=== PATIENT | female | born 1965 | race Caucasian/White ===

== ENCOUNTER → 2021-03-13 10:24 | Outpatient (BNVA) | payer OTHER, SELFPAY | PROVIDERS: Family Provider Nurse Practitioner Family; PCP Nurse Practitioner Family; Visit Provider Nurse Practitioner Family | DX: J11.1 Influenza due to unidentified influenza virus with other respiratory manifestations (principal) | CPT/HCPCS: 87400 ==

== ENCOUNTER → 2022-06-19 15:15 | Outpatient (BNVA) | payer OTHER, SELFPAY | PROVIDERS: Family Provider Nurse Practitioner Family; Visit Provider Nurse Practitioner Women's Health | DX: N93.9 Abnormal uterine and vaginal bleeding, unspecified (principal); N85.2 Hypertrophy of uterus | CPT/HCPCS: 76830 ==

== ENCOUNTER → 2022-06-21 16:00 | Outpatient (BNVA) | payer OTHER, SELFPAY | PROVIDERS: Family Provider Nurse Practitioner Family; Visit Provider Nurse Practitioner Women's Health | DX: N93.9 Abnormal uterine and vaginal bleeding, unspecified (principal); Z12.4 Encounter for screening for malignant neoplasm of cervix | CPT/HCPCS: 81000; 81025; 87624; 88305 ==

== ENCOUNTER 2022-06-24 12:22 | Emergency (ER) | payer OTHER, SELFPAY ==
[2022-06-24 12:24] VITALS: BP 199/127; PULSE 101; RESP 16; TEMP 36.8; O2SAT 99
--- NOTE | 2022-06-24 12:36 | ED_ITS ---
HPI - Dizziness General: Chief Complaint: Dizziness Stated Complaint: high bloodpressure Time Seen by Provider: 06/24/22 12:36 History of Present Illness: HPI Narrative: Ms. Williamson is a 56-year-old lady presented to the emergency department for generalized illness. She reports complex recent history of abnormal uterine bleeding with abnormal ultrasound. She has been having frequent abnormal uterine bleeding and recently underwent biopsy attempt. Starting yesterday she felt generally unwell with lightheaded feeling, racing heart, chest discomfort, heaviness in her arms, and generalized malaise. Additionally she has had worsening abdominal pain since her biopsy attempt. Intensity symptoms is moderate to severe. No other specific changes in health, exacerbating, or alleviating factors identified. Onset (ago): day(s) Timing: constant Severity: moderate Context: other History of similar symptoms: No Exacerbating factors: nothing Relieving factors: lying down Associated symptoms: Reports headache(s), malaise, palpitations and short of breath Review of Systems General: Reports: 10 or more systems reviewed and unremarkable except in HPI and below Const: Reports: malaise Card: Reports: palpitations Neuro: Reports: headache(s) PFSH ED PFSH: Surgical History (Updated 07/04/22 @ 02:34 by Burt Saucedo MD) Tubal ligation status Family History Denies family history of Colon cancer Pancreatic cancer Ovarian cancer Diabetes Breast cancer Cancer Hypertension Uterine cancer Thyroid disease Stroke Social History Smoking and tobacco status: never smoked Physical Exam Const: COMMON NORMALS: alert GENERAL APPEARANCE: cooperative and well developed HENMT: COMMON NORMALS: normocephalic and atraumatic HEAD & SCALP: normocephalic and atraumatic Eye: COMMON NORMALS: conjunctivae normal CONJUNCTIVA: Yes conjunctivae nor mal SCLERA: sclerae normal Neck/C-Spine: COMMON NORMALS: supple GENERAL: Yes trachea midline Resp: COMMON NORMALS: clear to auscultation bilaterally EFFORT & INSPECTION: Yes able to speak in complete sentences AUSCULTATION: clear to auscultation bilaterally Cardio: COMMON NORMALS: regular rhythm RATE: tachycardic RHYTHM: regular rhythm GI: COMMON NORMALS: Soft to palpation PALPATION: Yes Soft to palpation, Yes Tenderness to palpation present (GI), Yes Guarding due to palpation present (GI) and No Rigid due to palpation Extremity: GENERAL: Yes normal exam except as noted and No edema Neuro: COMMON NORMALS: moves all extremities SENSORIUM/ORIENTATION: Yes alert and No Orientation impaired Psych: COMMON NORMALS: mental status grossly normal and Normal thought process present THOUGHT PROCESS: Normal thought process present Course Vital Signs: Vital signs: Vital Signs Temperature 98.2 F 06/24/22 12:24 Pulse Rate 83 06/24/22 15:16 Respiratory Rate 14 06/24/22 15:16 Blood Pressure 142/95 06/24/22 15:16 Pulse Oximetry 99 06/24/22 15:16 Oxygen Delivery Me thod 06/24/22 15:16 MDM - Dizziness Medical Decision Making 56-year-old lady presenting with blood pressure changes and generalized illness as well as headache. Exam as above with no focal neurologic deficits appreciated. EKG demonstrates sinus rhythm with right bundle branch block, no STEMI. No significant hematologic abnormalities, metabolic panel with hypokalemia. Negative range 2-hour delta troponin. Hematuria present though squamous epithelial contamination also present.. Chest x-ray with no lobar consolidation or pneumothorax per CT head negative for acute intracranial pathology. CT demonstrates no clear etiology of patient symptoms, abnormal uterine appearance and cervical appearance is known. Patient improved with analgesia and potassium supplementation. Most likely etiology patient's symptoms is nonspecific illness and postoperative pain. Plan for outpatient blood pressure management and potassium supplem entation. The results of ED evaluation were discussed with the patient including prescriptions and/or symptomatic cares (if applicable) including appropriate and responsible use, followup plan, and return precautions. The patient verbalized understanding and felt safe for discharge. Medical Records I reviewed the patient's medical records. Lab Data I reviewed the patient's lab results. 06/24/22 12:48 06/24/22 12:48 Radiology Impressions Chest X-Ray 06/24/22 12:49 IMPRESSION: No acute findings. Abdomen/Pelvis CT 06/24/22 13:13 IMPRESSION: 1. No acute findings. 2. Abnormal appearance of the uterus consistent with adenomyosis as suggested on prior ultrasound. The cervix is also enlarged but hypoenhancing. Cervical neoplasm not excluded. 3. Incidental findings above. ADDENDUM: 06/24/22 [id number] THIS REPORT CONTAINS FINDINGS THAT MAY BE CRITICAL TO PATIENT CARE. The findings were verbally communicated via telephone conference with Burt Saucedo at 3:05 PM FUR TAILOR on 06/24/2022. The findings were acknowledged and understood. Head CT 06/24/22 13:13 IMPRESSION: No acute intracranial abnormality. Laboratory Results WBC 9.7 10^3/uL (4.0-10.0) 06/24/22 12:48 RBC 4.59 10^6/uL (4.1-5.3) 06/24/22 12:48 Hgb 12.7 g/dL (11.5-15.3) 06/24/22 12:48 Hct 40.3 % (37.0-47.0) 06/24/22 12:48 MCV 87.8 fl (81-99) 06/24/22 12:48 MCH 27.7 pg (28.0-34.0) L 06/24/22 12:48 MCHC 31.5 g/dL (30.0-36.0) 06/24/22 12:48 RDW 13.0 % (12.1-15.1) 06/24/22 12:48 Plt Count 425 10^3/cmm (130-400) H 06/24/22 12:48 MPV 11.3 fL (7.4-10.4) H 06/24/22 12:48 Neut % (Auto) 68.5 % 06/24/22 12:48 Lymph % (Auto) 23.1 % 06/24/22 12:48 [place] % (Auto) 6.4 % 06/24/22 12:48 Eos % (Auto) 0.8 % 06/24/22 12:48 Baso % (Auto) 0.8 % 06/24/22 12:48 Neut # (Auto) 6.61 10^3/uL (1.8-7.7) 06/24/22 12:48 Lymph # (Auto) 2.2 10^3/uL (0.8-4.8) 06/24/22 12:48 [place] # (Auto) 0.6 10^3/uL (0.2-0.9) 06/24/22 12:48 Eos # (Auto) 0.1 10^3/uL (0.0-0.8) 06/24/22 12:48 Baso # (Auto) 0.1 10^3/uL (0.0-0.1) 06/24/22 12:48 Nucleated RBC % (auto) 0 % 06/24/22 12:48 Nucleated RBCs # 0.0 /100WBC 06/24/22 12:48 Sodium 139 mmol/L (136-145) 06/24/22 12:48 Potassium 3.0 mmol/L (3.5-5.1) L 06/24/22 12:48 Chloride 100 mmol/L (98-107) 06/24/22 12:48 Carbon Dioxide 26 mmol/L (22-29) 06/24/22 12:48 Anion Gap 16.0 (5-19) 06/24/22 12:48 BUN 9 mg/dL (6-20) 06/24/22 12:48 Creatinine 0.5 mg/dL (0.5-0.9) 06/24/22 12:48 GFR Calculation 128.6 mL/min (90-130) 06/24/22 12:48 Glucose 90 mg/dL (65-115) 06/24/22 12:48 Calculated Osmolality 286 mOsm/kg (285-295) 06/24/22 12:48 Lactate 1.4 mmol/L (0.5-2.2) 06/24/22 12:48 Calcium 9.4 mg/dL (8.5-10.5) 06/24/22 12:48 Total Bilirubin 0.2 mg/dL (0.15-1.2) 06/24/22 12:48 AST 23 U/L (0-32) 06/24/22 12:48 ALT 17 U/L (0-33) 06/24/22 12:48 Alkaline Phosphatase 68 U/L (35-105) 06/24/22 12:48 Troponin T Baseline 6 ng/L (0-10) 06/24/22 12:48 Troponin T 120 Minute 6.00 ng/L (0-10) 06/24/22 14:20 Delta Troponin T 0 ABS# (0-10) 06/24/22 14:20 Total Protein 6.9 g/dL (6.6-8.7) 06/24/22 12:48 Albumin 4.7 g/dL (3.5-5.2) 06/24/22 12:48 Globulin 2.2 g/dL (1.3-4.6) 06/24/22 12:48 Lipase 16 U/L (13-60) 06/24/22 12:48 TSH 1.81 uIU/mL (0.27-4.20) 06/24/22 12:48 Urine Color Straw (Yellow) 06/24/22 13:20 Urine Appearance Clear (CLEAR) 06/24/22 13:20 Urine pH 6.5 (5-7) 06/24/22 13:20 Ur Specific Pony 1.010 (1.005-1.030) 06/24/22 13:20 Urine Protein Neg (Negative) 06/24/22 13:20 Urine Glucose (UA) Norm (Normal) 06/24/22 13:20 Urine Ketones Negative (Negative) 06/24/22 13:20 Urine Blood 3+ (Negative) H 06/24/22 13:20 Urine Nitrate Negative (Negative) 06/24/22 13:20 Urine Bilirubin Neg (Negative) 06/24/22 13:20 Urine Urobilinogen Norm mg/dL (Negative) 06/24/22 13:20 Ur Leukocyte Esterase Negative (Negative) 06/24/22 13:20 Urine RBC 15-25 /hpf (0-2) H 06/24/22 13:20 Urine WBC 0-4 /hpf (0-5) H 06/24/22 13:20 Ur Squamous Epith Cells 10-15 /hpf (0-5) H 06/24/22 13:20 Amorphous Sediment Not Reportable 06/24/22 13:20 Urine Bacteria 1+ /hpf (NONE) H 06/24/22 13:20 Discharge Plan Discharge Patient Disposition: Home Clinical Impression: Hypertension, Lightheadedness, Headache, Malaise and fatigue, Abdominal pain, Abnormal finding present on diagnostic imaging of uterus Condition: Stable Prescriptions: New potassium chloride 10 mEq capsule, extended release 10 meq PO DAILY Qty: 7 0RF amlodipine 5 mg tablet 5 mg PO DAILY Qty: 30 0RF oxycodone 5 mg tablet 5 mg PO Q4H PRN (Reason: pain) Qty: 10 0RF No Action esomeprazole magnesium [Nexium] 20 mg capsule,delayed release(DR/EC) 20 mg PO DAILY Claritin-D 12 Hour 5-120 mg tablet extended release 12 hr 1 tab PO Q12H Qty: 60 0RF Discharge Orders: Discharge ED (Routine); Ordered 06/24/22 Ordered By: Burt Saucedo Discharge Diet: Advance as tolerated and Clear Liquid Discharge Activity: Increase activity as tolerated Patient Instructions: Hypokalemia (ED), Acute Headache (ED), Abdominal Pain (ED), Lightheadedness (ED), Opioid Safety Activity Restrictions/Additional Instructions: Thank you for visiting the emergency department. You were seen and evaluated for lightheadedness with syncope and generalized unwell feeling. The exact cause of your symptoms is unclear. Based on ED evaluation I do not feel that y ou require inpatient management at this time. I will prescribe medication for blood pressure, potassium supplementation for 1 week, and pain medication. You may use [id number] medications such as acetaminophen and ibuprofen for pain however please do not exceed the daily recommended dosage as listed on the packaging and please keep in mind that many namebrand medications contain the same active ingredients. Please avoid these medications if previously instructed to do so by another physician due to other underlying medical condition. 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 Return to the emergency department for uncontrolled symptoms or anything else that you are concerned about and feel needs emergency department evaluation. Coding Level of Care Code ED Teacher'S Aide for Nickolas Willingham
--- NOTE | 2022-06-24 12:49 | XRR_ITS ---
PROCEDURE INFORMATION: Exam: XR Chest Exam date and time: 06/24/2022 12:58 PM Age: 56 years old Clinical indication: Pain; Chest pressure; Additional info: Cp TECHNIQUE: Imaging protocol: Radiologic exam of the chest. Views: 1 view. COMPARISON: No relevant prior studies available. FINDINGS: Lungs: Unremarkable. No consolidation. Pleural spaces: Unremarkable. No pleural effusion. No pneumothorax. Heart/Mediastinum: Unremarkable. No cardiomegaly. Bones/joints: Unremarkable. XR/XR chest 1V portable [id number] IMPRESSION: No acute findings.
--- NOTE | 2022-06-24 12:55 | ECG_ITS ---
[facility] Test Date: 2022-06-24 Pat Name: Parris Williamson Department: Room: Gender: Female [employer]: : 1965 Requested By: Burt Saucedo Order Number: [id number] Debbie MD: Doc Temple M.D. Measurements Intervals [place] Rate: 85 P: 53 MA: 163 QRS: 39 QRSD: 147 T: 34 QT: 380 QTc: 452 Interpretive Statements SINUS RHYTHM RIGHT BUNDLE BRANCH BLOCK [120+ ms QRS DURATION, UPRIGHT V1, 40+ ms S IN I/aVL/V4/V5/V6] No previous ECG available for comparison Electronically Signed On 06-24-2022 15:19:46 HOISTING ENGINE OPERATOR by Doc Temple M.D. [id number]
[2022-06-24 13:01] VITALS: BP 159/107; PULSE 88; RESP 18; O2SAT 98
[2022-06-24 13:05] VITALS: RESP 18; O2SAT 97
[2022-06-24] MEDS: morphine 4 mg/mL SDV 1 mL IVP (13:05)
[2022-06-24 13:06] LABS: Basophils # 0.1 10^3/uL (0.0-0.1); Basophils % 0.8 %; Eosinophils # 0.1 10^3/uL (0.0-0.8); Eosinophils % 0.8 %; Hematocrit 40.3 % (37.0-47.0); Hemoglobin 12.7 g/dL (11.5-15.3); Lymphocytes # 2.2 10^3/uL (0.8-4.8); Lymphocytes % 23.1 %; Mean Corpuscular HGB Conc 31.5 g/dL (30.0-36.0); Mean Corpuscular Hemoglobin 27.7 pg (28.0-34.0); Mean Corpuscular Volume 87.8 fl (81-99); Mean Platelet Volume 11.3 fL (7.4-10.4); Monocytes # 0.6 10^3/uL (0.2-0.9); Monocytes % 6.4 %; Neutrophils # 6.61 10^3/uL (1.8-7.7); Neutrophils % 68.5 %; Nucleated Red Blood Cells % 0 %; Platelet Count 425 10^3/cmm (130-400); Red Blood Count 4.59 10^6/uL (4.1-5.3); White Blood Count 9.7 10^3/uL (4.0-10.0)
--- NOTE | 2022-06-24 13:13 | CTR_ITS ---
PROCEDURE INFORMATION: Exam: CT Head Without Contrast Exam date and time: 06/24/2022 2:24 PM Age: 56 years old Clinical indication: Pain; Dizziness; Headache; Additional info: Headache, dizziness TECHNIQUE: Imaging protocol: Computed tomography of the head without contrast. Radiation optimization: All CT scans at this facility use at least one of these dose optimization techniques: automated exposure control; mA and/or kV adjustment per patient size (includes targeted exams where dose is matched to clinical indication); or iterative reconstruction. Other protocol: This patient has received [address] and 0 known cardiac nuclear medicine studies in the 12 months prior to the current study. COMPARISON: No relevant prior studies available. RADIATION DOSE METRICS: Total DLP (mGy-cm): 339.86 FINDINGS: Brain: Normal. No hemorrhage. Unremarkable white matter. No mass effect. Cerebral ventricles: No ventriculomegaly. Paranasal sinuses: Visualized sinuses are unremarkable. No fluid levels. Mastoid air cells: Visualized mastoid air cells are well aerated. Bones/joints: Unremarkable. No acute fracture. Soft tissues: Unremarkable. CT/CT head wo con* [id number] IMPRESSION: No acute intracranial abnormality.
--- NOTE | 2022-06-24 13:13 | CTR_ITS ---
PROCEDURE INFORMATION: Exam: CT Abdomen And Pelvis With Contrast Exam date and time: 06/24/2022 2:31 PM Age: 56 years old Clinical indication: Abdominal pain; Patient HX: Bx on cervix; Additional info: Worsening abd pain, lower > upper, post endometrial biopsy attempt TECHNIQUE: Imaging protocol: Computed tomography of the abdomen and pelvis with contrast. Radiation optimization: All CT scans at this facility use at least one of these dose optimization techniques: automated exposure control; mA and/or kV adjustment per patient size (includes targeted exams where dose is matched to clinical indication); or iterative reconstruction. Contrast material: OMNI 350; Contrast volume: 75 ml; Contrast route: INTRAVENOUS (IV); Other protocol: This patient has received [address] and 0 known cardiac nuclear medicine studies in the 12 months prior to the current study. COMPARISON: US transvaginal [id number] 06/19/2022 3:20 PM RADIATION DOSE METRICS: Total DLP (mGy-cm): 339.86 FINDINGS: Lungs: Lung bases are clear. Liver: The liver is normal. Gallbladder and bile ducts: The gallbladder is normal. There is no biliary dilation. Pancreas: The pancreas is unremarkable. Spleen: The spleen is unremarkable. Adrenal glands: The adrenal glands are unremarkable. Kidneys and ureters: The kidneys are unremarkable. No hydronephrosis or stones. No ureteral dilation. Stomach and bowel: The stomach is decompressed, preventing meaningful evaluation of wall thickness. The small bowel is nondilated. The colon is unremarkable. Appendix: The appendix is normal. Intraperitoneal space: There is no free air or significant intraperitoneal free fluid. Vasculature: The aorta is unremarkable. There is no aneurysm. The portal, splenic and superior mesenteric veins are patent. Lymph nodes: There is no lymphadenopathy in the retroperitoneum, mesentery, pelvis or inguinal regions. Urinary bladder: The urinary bladder is unremarkable. Reproductive: Enlarged mildly irregular hyperemic uterine fundus and hypoenhancement of the enlarged cervix. Probable adenomyosis. Prominent bilateral adnexal veins. No adnexal mass or cyst. Bones/joints: There is mild degenerative disease in the lumbar spine. The pelvis and hips are unremarkable. Soft tissues: The abdominal wall is intact. CT/CT abdomen pelvis w con* [id number] IMPRESSION: 1. No acute findings. 2. Abnormal appearance of the uterus consistent with adenomyosis as suggested on prior ultrasound. The cervix is also enlarged but hypoenhancing. Cervical neoplasm not excluded. 3. Incidental findings above.
[2022-06-24 13:21] LABS: Lactate (Lactic Acid level) 1.4 mmol/L (0.5-2.2)
[2022-06-24 13:24] LABS: Troponin(5th) Baseline 6 ng/L (0-10)
[2022-06-24 13:29] LABS: Alanine Aminotransferase 17 U/L (0-33); Albumin Level 4.7 g/dL (3.5-5.2); Alkaline Phosphatase 68 U/L (35-105); Aspartate Amino Transferase 23 U/L (0-32); Blood Urea Nitrogen 9 mg/dL (6-20); Calcium 9.4 mg/dL (8.5-10.5); Carbon Dioxide 26 mmol/L (22-29); Chloride 100 mmol/L (98-107); Globulin 2.2 g/dL (1.3-4.6); Glomerular Filtration Rate 128.6 mL/min (90-130); Glucose 90 mg/dL (65-115); Lipase 16 U/L (13-60); Osmolality Calculated 286 mOsm/kg (285-295); Sodium 139 mmol/L (136-145); Thyroid Stimulating Hormone 1.81 uIU/mL (0.27-4.20); Total Bilirubin 0.2 mg/dL (0.15-1.2); Total Protein 6.9 g/dL (6.6-8.7)
[2022-06-24 13:30] VITALS: BP 150/91; PULSE 83; RESP 18; O2SAT 95
[2022-06-24 14:00] VITALS: BP 144/96; PULSE 78; RESP 18; O2SAT 95
[2022-06-24 14:03] LABS: Add Urine Microscopic? YES; Bilirubin Urine Neg (Negative); Blood Urine 3+ (Negative); Glucose Urine UA Norm (Normal); Ketones Urine Negative (Negative); Leukocyte Esterase Urine Negative (Negative); Nitrate Urine Negative (Negative); Protein Urine Neg (Negative); Urine Appearance Clear (CLEAR); Urine Color Straw (Yellow); Urobilinogen Urine Norm (Negative); pH Urine 6.5 (5-7)
[2022-06-24 14:04] LABS: Add Urine Culture? No; Bacteria Urine 1+ /hpf; RBC Urine 15-25 /hpf (0-2); WBC Urine 0-4 /hpf (0-5)
[2022-06-24] MEDS: iohexol 350 mg/mL 500 mL Btl (per mL) IV (14:24)
--- NOTE | 2022-06-24 15:03 | PC.NURSE ---
Pt refused Flu swab and Covid swab.
[2022-06-24] MEDS: potassium chloride ER 20 mEq Tablet 40 MEQ PO (15:09)
[2022-06-24 15:16] VITALS: BP 142/95; PULSE 83; RESP 14; O2SAT 99
[2022-06-24 15:37] LABS: Troponin 5 2HR Delta 0 ABS# (0-10)
== END 2022-06-24 15:27 | disposition home or self-care (01) ==
PROVIDERS: Emergency Provider Emergency Medicine
DX: R42 Dizziness and giddiness (principal); I10 Essential (primary) hypertension; R51.9 Headache, unspecified; R53.81 Other malaise; R53.83 Other fatigue; R10.9 Unspecified abdominal pain; R93.89 Abnormal findings on diagnostic imaging of other specified body structures
CPT/HCPCS: 36415; 70450; 71045; 74177; 80053; 81001; 83605; 83690; 84443; 84484; 85025; 93005; 96374; 99285; J2270; Q9967

== ENCOUNTER 2022-07-11 11:37 | Day surgery (SDC) | payer OTHER, SELFPAY ==
[2022-07-10 09:47] VITALS: BMI 3318.2
[2022-07-11] VITALS (9 sets, daily range): BP systolic 127–151; BP diastolic 80–116; PULSE 88–100; RESP 10–20; TEMP 36.3–36.8; O2SAT 94–100
[2022-07-11 12:12] LABS: OR HCG Qualitative Urine Negative (Negative)
[2022-07-11] MEDS: sodium chloride 0.9% 1,000 ML 30 ML IV (12:25)
--- NOTE | 2022-07-11 12:32 | W.PM.OPSUD ---
Surgery/Procedure H&P Update DATE OF PROCEDURE: July 11, 2022 DATE H&P PERFORMED: 07/05/22 H&P UPDATE INFORMATION: I have reviewed H&P completed within last 30 days, I have examined patient prior to procedure and No changes to prior documentation PREOP DIAGNOSIS: AUB PLANNED PROCEDURE: Operation Date: 07/11/22 15:05 Proposed Procedures p Hysteroscopy, dilation and curettage with Myosure [id number],N93.9(Not Applicable) - Aleida Alamo MD s Dilation And Curettage (D&C)(Not Applicable) - Aleida Alamo MD Related Problem List Diagnoses (1) Abnormal uterine bleeding:
[2022-07-11] MEDS: ceFAZolin 2,000 MG in sodium chloride 0.9% (plus) 50 ML 100 MG IV (13:05)
--- NOTE | 2022-07-11 13:27 | ANES.PREANE2 ---
Pre-Anesthetic Assessment Height/Weight: Height 12.7 cm Weight 53.524 kg Temp Pulse Resp BP Pulse Ox O2 Del Method 98.3 F 100 18 151/116 100 07/11/22 12:24 07/11/22 12:24 07/11/22 12:24 07/11/22 12:24 07/11/22 12:24 07/11/22 12:24 Preop Diagnosis: AUB Operation Date: 07/11/22 15:05 Proposed Procedures p Hysteroscopy, dilation and curettage with Myosure [id number],N93.9(Not Applicable) - Aleida Alamo MD s Dilation And Curettage (D&C)(Not Applicable) - Aleida Alamo MD Familial anesthetic complications: none Was Beta Brissa taken within 24 hours: N/A Was Clonidine taken within 24 hours: N/A Last intake: Intake Last Liquid Date 07/10/22 Last Liquid Time 23:00 Last Solid Date 07/10/22 Last Solid Time 23:00 Social No alcohol and No tobacco Exam alert, oriented x 3, clear to auscultation bilaterally and regular rate & rhythm Airway Submandibular: within normal limits Cervical ROM: within normal limits Mallampati: Class II Dentition: full GI Gastroesophageal Reflux Disease Anesthetic Plan ASA status: 2 Anesthesia: General Medications/Allergies Home Medications Medication Instructions Recorded Confirmed Last Taken Type esomeprazole magnesium 20 mg 20 mg PO DAILY 03/13/21 07/10/22 07/10/22 History capsule,delayed release (Nexium) loratadine 5 mg-pseudoephedrine ER 1 tab PO DAILY 07/10/22 07/10/22 07/10/22 History 120 mg tablet,extended release,12hr (Claritin-D 12 Hour) Allergies Allergy/AdvReac Type Severity Reaction Status Date / Time Sulfa (Sulfonamide Allergy ALGY-Hives Verified 07/11/22 12:03 Antibiotics) Current Medications Generic Name Dose Route Start Last Admin Trade Name Freq PRN Reason Stop Dose Admin Sodium Chloride 1,000 mls @ 30 mls/hr 07/11/22 12:00 07/11/22 12:25 Sodium Chloride 0.9% IV 07/12/22 11:59 30 mls/hr .Q24H FRANSISCO Administration PFSH Anesthesia Medical History (Updated 07/11/22 @ 12:32 by Aleida Alamo MD) Hypertension Surgical History Tubal ligation status Family History Denies family history of Colon cancer Pancreatic cancer Ovarian cancer Diabetes Breast cancer Cancer Hypertension Uterine cancer Thyroid disease Stroke Social History Smoking and tobacco status: never smoked Data Anesthesia Cardiac Studies: No Data to Display
--- NOTE | 2022-07-11 13:37 | P.OP_ITS ---
Operative Report Date of procedure: July 11, 2022 Pre-op diagnosis: Preop Diagnosis AUB Post-op diagnosis: same Post-op diagnosis: uterine fibroids and polyps Procedure done: hysteroscopy, dilation and curettage with myosure Specimens removed/disposition: endometrial curettings to pathology Surgeon: Aleida Alamo Anesthesia: General Estimated blood loss (mL): 5 IV fluids (mL): 1,000 Complications: none Findings: hysteroscopy deficit:150 Condition: stable Disposition: PACU Procedure: The patient was taken to the operating room where monitored anesthesia was administered and to be adequate. She was prepped and draped in the normal sterile fashion in the dorsal lithotomy position in [facility]. A weighted speculum was placed into the vagina and the anterior lip of the cervix grasped with a single-tooth tenaculum. The uterus was sounded to 8 cm. The cervix was dilated to 16 [place]. The hysteroscope was advanced into the endometrial cavity. There was uterine fibroids and several endometrial polyps visualized. The MyoSure device was activated and the tissue was removed. Pictures were taken pre and post procedure. All instruments were removed. The patient tolerated the procedure well. Sponge lap and needle counts were correct x3. She was taken to the recovery room in stable condition.
--- NOTE | 2022-07-11 13:43 | PM.DCS ---
Discharge Providers Date of Admission: 07/11/22 Date of Discharge: July 11, 2022 Attending Provider at Admission: Dr. Alamo Attending Provider at Discharge: Aleida Alamo MD Diagnoses at Discharge Discharge Diagnosis (1) Abnormal uterine bleeding: Status: Acute Reason for Visit Reason for Visit: Abnormal uterine and vaginal bleeding, unspecified Hospital Course Hospital Course The patient was admitted for surgery. She did well postoperatively and was ready for discharge. Discharge Data Studies Completed and Pending Laboratory Results Urine HCG, Qual Negative (Negative) 07/11/22 12:11 Vitals Last Vital Signs Temp 98.3 F 07/11/22 12:24 Pulse 100 07/11/22 12:24 Resp 18 07/11/22 12:24 BP 151/116 07/11/22 12:24 Pulse Ox 100 07/11/22 12:24 O2 Del Method 07/11/22 12:24 Discharge Plan Discharge Patient Disposition: Home Condition: Stable Prescriptions: Continued esomeprazole magnesium [Nexium] 20 mg capsule,delayed release(DR/EC) 20 mg PO DAILY Claritin-D 12 Hour 5-120 mg tablet extended release 12 hr 1 tab PO DAILY Discharge Orders: Discharge Order (Routine); Ordered 07/11/22 Ordered By: Aleida Alamo Discharge Attestations Time Spent in Discharge Care*: less than 30 min Quality Metrics Clinical Quality Measures [ No reported AMI, CVA or VTE this stay] Coding Level of Care Code Acute Code for Chg Fwd Diagnoses Abnormal uterine bleeding N93.9
--- NOTE | 2022-07-11 14:51 | ANE.PACU2 ---
Inpatient post-anesthesia follow up: Airway intact: Yes Vital signs: Temperature 97.8 F Pulse Rate 88 Respiratory Rate 16 Blood Pressure 139/99 Pulse Oximetry 97 Oxygen Delivery Me thod Room Air Oxygen Flow Rate 8 Fraction of Inspir ed Oxygen Hydration adequate: Yes Nausea and vomiting: No Pain level: 2 Mental status: Baseline
== END 2022-07-11 15:10 | disposition home or self-care (01) ==
PROVIDERS: Anesthesiology; Visit Provider Obstetrics & Gynecology
PROC: 0UDB8ZZ Extraction of Endometrium, Via Natural or Artificial Opening Endoscopic (ICD-10-PCS; CPT 58558; principal; 2022-07-11 14:55)
PROC: (CPT 58120; 2022-07-11 14:55)
DX: N93.9 Abnormal uterine and vaginal bleeding, unspecified (principal); K21.9 Gastro-esophageal reflux disease without esophagitis; I10 Essential (primary) hypertension
CPT/HCPCS: 58558; 84703; 88305; J0690; J2250; J3010; J7030

== ENCOUNTER 2022-07-20 16:42 | Emergency (ER) | payer OTHER, SELFPAY ==
[2022-07-20 16:50] VITALS: BP 167/124; PULSE 107; RESP 16; TEMP 36.6; O2SAT 99
--- NOTE | 2022-07-20 17:03 | CTR_ITS ---
PROCEDURE INFORMATION: Exam: CT Abdomen And Pelvis With Contrast Exam date and time: 07/20/2022 6:06 PM Age: 56 years old Clinical indication: Abdominal pain; Localized; Lower; Prior surgery; Surgery type: Tubal 07/11 had scope to look at uterus; Additional info: Abd pain TECHNIQUE: Imaging protocol: Computed tomography of the abdomen and pelvis with contrast. Radiation optimization: All CT scans at this facility use at least one of these dose optimization techniques: automated exposure control; mA and/or kV adjustment per patient size (includes targeted exams where dose is matched to clinical indication); or iterative reconstruction. Contrast material: OMNI 350; Contrast volume: 75 ml; Contrast route: INTRAVENOUS (IV); REPORTING DATA: Count of CT and Cardiac NM exams in prior 12 months: This patient has received 2 known CTs and 0 known cardiac nuclear medicine studies in the 12 months prior to the current study. COMPARISON: CT abdomen pelvis w con* [id number] 06/24/2022 2:31 PM RADIATION DOSE METRICS: Total DLP (mGy-cm): 369.65 FINDINGS: Liver: Hepatic steatosis. Gallbladder and bile ducts: Normal. No calcified stones. No ductal dilation. Pancreas: Normal. No ductal dilation. Spleen: Normal. No splenomegaly. Adrenal glands: Normal. No mass. Kidneys and ureters: Normal. No hydronephrosis. Stomach and bowel: Prominent fluid in the small bowel without dilation suggestive of an enteritis. Constipation. Appendix: No evidence of appendicitis. Intraperitoneal space: Unremarkable. No free air. No significant fluid collection. Vasculature: Unremarkable. No abdominal aortic aneurysm. Lymph nodes: Unremarkable. No enlarged lymph nodes. Urinary bladder: Unremarkable as visualized. Reproductive: Fibroid uterus with possible adenomyosis, please refer to prior ultrasound report. Bones/joints: Unremarkable. No acute fracture. Soft tissues: Unremarkable. CT/CT abdomen pelvis w con* [id number] IMPRESSION: 1. Prominent fluid in the small bowel without dilation suggestive of an enteritis. 2. Fibroid uterus with possible adenomyosis, please refer to prior ultrasound report for additional discussion. 3. Hepatic steatosis. 4. Constipation.
--- NOTE | 2022-07-20 17:47 | W.ED.ABDPA2 ---
Documented by User: Magen Sparks DO 07/21/22 06:19 HPI - Abdominal Pain General: Chief Complaint: Abdominal Pain Stated Complaint: swelling Time Seen by Provider: 07/20/22 16:58 Source: patient Mode of arrival: ambulatory History of Present Illness: 56-year-old female presents emergency room with complaint of pelvic pain. On July 11 she had a uterine biopsy done by Dr. Alamo initially she had some discomfort then it seemed to get better she has had intermittent vaginal bleeding which she states is typical for her. She denies any difficulty with bowel or bladder today she began to have a large amount of swelling and bloating and worsening pain to the point she presented to the emergency room she denies any fever sweats chills denies any dysuria urgency or frequency. MD elicited complaint: abdominal pain Pertinent past history: other (Recent surgical procedure) Onset (ago): day(s) Pain Consistency: constant Location: Pelvis Severity: moderate Quality: cramping Radiation: none Exacerbating factors: nothing Relieving factors: nothing Associated Symptoms: Reports GI cramping; Denies anorexia, belching, bloating, change in bowel habits, change in stool character, chills, coffee ground emesis, constipation, diarrhea, dyspepsia, dysuria, excessive flatus, fever(s), heartburn, hematochezia, hematuria, hematemesis, fecal incontinence, loose stools, melena, nausea, poor appetite, syncope and vomiting Review of Systems Const: Denies: fever(s) or chills Card: Denies: syncope GI: Reports: GI cramping; Denies: nausea, vomiting, hematemesis, coffee ground emesis, heartburn, diarrhea, constipation, bloating, belching, excessive flatus, fecal incontinence, change in bowel habits, change in stool character, hematochezia or melena : Denies: dysuria or hematuria PFSH ED PFSH: Medical History Acute sinusitis Hypertension Surgical History Tubal ligation status Family History Denies family history of Colon cancer Pancreatic cancer Ovarian cancer Diabetes Breast cancer Cancer Hypertension Uterine cancer Thyroid disease Stroke Physical Exam Const: GENERAL APPEARANCE: cooperative and comfortable ORIENTATION/CONSCIOUSNESS: Yes awake, Yes oriented to person, Yes oriented to place and Yes oriented to time HENMT: COMMON NORMALS: normocephalic, atraumatic and hearing grossly normal bilaterally HEAD & SCALP: normocephalic and atraumatic Resp: COMMON NORMALS: normal respiratory effort, No retractions, No use of accessory muscles and clear to auscultation bilaterally AUSCULTATION: clear to auscultation bilaterally Cardio: COMMON NORMALS: regular rate, regular rhythm and No murmurs present (Cardio) RATE: regular rate RHYTHM: regular rhythm GI: COMMON NORMALS: No hepatosplenomegaly present AUSCULTATION: Yes normoactive bowel sounds PALPATION: Yes Tenderness to palpation present (GI) (Suprapubic at the midline into the right of the midline), No Guarding due to palpation present (GI) and Yes No hepatosplenomegaly present Extremity: COMMON NORMALS: normal to inspection, capillary refill normal, no clubbing, cyanosis or edema, no calf tenderness and no pedal edema Neuro: SENSORIUM/ORIENTATION: Yes oriented to person, Yes oriented to place and Yes oriented to time Skin: COMMON NORMALS: no rashes or lesions noted GENERAL SKIN EXAM: no rashes or lesions noted Course Vital Signs: Vital signs: Vital Signs Temperature 97.9 F 07/20/22 16:50 Pulse Rate 107 H 07/20/22 16:50 Respiratory Rate 16 07/20/22 16:50 Blood Pressure 167/124 07/20/22 16:50 Pulse Oximetry 99 07/20/22 16:50 Oxygen Delivery Me thod 07/20/22 16:50 MDM - Abdominal Pain Medical Decision Making Care signed out to Dr. Adams at change of shift. See final notes for diagnosis and disposition. Patient presents here with abdominal pain likely postop pain her CT scan and blood work here are all normal we will prescribe her pain meds she is stable for discharge she is to follow-up with PCP and return if worsening. Lab Data 07/20/22 17:52 07/20/22 17:52 Labs/Radiology: Radiology Impressions Abdomen/Pelvis CT 07/20/22 17:03 IMPRESSION: 1. Prominent fluid in the small bowel without dilation suggestive of an enteritis. 2. Fibroid uterus with possible adenomyosis, please refer to prior ultrasound report for additional discussion. 3. Hepatic steatosis. 4. Constipation. Laboratory Results WBC 12.0 10^3/uL (4.0-10.0) H 07/20/22 17:52 RBC 4.35 10^6/uL (4.1-5.3) 07/20/22 17:52 Hgb 12.0 g/dL (11.5-15.3) 07/20/22 17:52 Hct 37.3 % (37.0-47.0) 07/20/22 17:52 MCV 85.7 fl (81-99) 07/20/22 17:52 MCH 27.6 pg (28.0-34.0) L 07/20/22 17:52 MCHC 32.2 g/dL (30.0-36.0) 07/20/22 17:52 RDW 12.8 % (12.1-15.1) 07/20/22 17:52 Plt Count 389 10^3/cmm (130-400) 07/20/22 17:52 MPV 11.2 fL (7.4-10.4) H 07/20/22 17:52 Neut % (Auto) 67.1 % 07/20/22 17:52 Lymph % (Auto) 22.7 % 07/20/22 17:52 [place] % (Auto) 7.8 % 07/20/22 17:52 Eos % (Auto) 1.5 % 07/20/22 17:52 Baso % (Auto) 0.6 % 07/20/22 17:52 Neut # (Auto) 8.05 10^3/uL (1.8-7.7) H 07/20/22 17:52 Lymph # (Auto) 2.7 10^3/uL (0.8-4.8) 07/20/22 17:52 [place] # (Auto) 0.9 10^3/uL (0.2-0.9) 07/20/22 17:52 Eos # (Auto) 0.2 10^3/uL (0.0-0.8) 07/20/22 17:52 Baso # (Auto) 0.1 10^3/uL (0.0-0.1) 07/20/22 17:52 Nucleated RBC % (auto) 0 % 07/20/22 17:52 Nucleated RBCs # 0.0 /100WBC 07/20/22 17:52 PT 12.60 SECONDS (12.1-14.9) 07/20/22 17:52 INR 0.91 (0.8-1.2) 07/20/22 17:52 APTT 27.8 SECONDS (23.9-36.7) 07/20/22 17:52 Sodium 139 mmol/L (136-145) 07/20/22 17:52 Potassium 3.2 mmol/L (3.5-5.1) L 07/20/22 17:52 Chloride 101 mmol/L (98-107) 07/20/22 17:52 Carbon Dioxide 27 mmol/L (22-29) 07/20/22 17:52 Anion Gap 14.2 (5-19) 07/20/22 17:52 BUN 14 mg/dL (6-20) 07/20/22 17:52 Creatinine 0.6 mg/dL (0.5-0.9) 07/20/22 17:52 GFR Calculation 104.2 mL/min (90-130) 07/20/22 17:52 Glucose 93 mg/dL (65-115) 07/20/22 17:52 Calculated Osmolality 288 mOsm/kg (285-295) 07/20/22 17:52 Calcium 9.9 mg/dL (8.5-10.5) 07/20/22 17:52 Total Bilirubin 0.2 mg/dL (0.15-1.2) 07/20/22 17:52 AST 28 U/L (0-32) 07/20/22 17:52 ALT 40 U/L (0-33) H 07/20/22 17:52 Alkaline Phosphatase 89 U/L (35-105) 07/20/22 17:52 Total Protein 7.3 g/dL (6.6-8.7) 07/20/22 17:52 Albumin 4.9 g/dL (3.5-5.2) 07/20/22 17:52 Globulin 2.4 g/dL (1.3-4.6) 07/20/22 17:52 Lipase 15 U/L (13-60) 07/20/22 17:52 Urine Color Colorless (Yellow) 07/20/22 18:40 Urine Appearance Clear (CLEAR) 07/20/22 18:40 Urine pH 7 (5-7) 07/20/22 18:40 Ur Specific [place] 1.005 (1.005-1.030) 07/20/22 18:40 Urine Protein Neg (Negative) 07/20/22 18:40 Urine Glucose (UA) Norm (Normal) 07/20/22 18:40 Urine Ketones Negative (Negative) 07/20/22 18:40 Urine Blood 2+ (Negative) H 07/20/22 18:40 Urine Nitrate Negative (Negative) 07/20/22 18:40 Urine Bilirubin Neg (Negative) 07/20/22 18:40 Urine Urobilinogen Neg mg/dL (Negative) 07/20/22 18:40 Ur Leukocyte Esterase Negative (Negative) 07/20/22 18:40 Urine RBC Rare /hpf (0-2) 07/20/22 18:40 Urine WBC Rare /hpf (0-5) 07/20/22 18:40 Ur Squamous Epith Cells Rare /hpf (0-5) 07/20/22 18:40 Amorphous Sediment Not Reportable 07/20/22 18:40 Urine Bacteria None /hpf (NONE) 07/20/22 18:40 Discharge Plan Discharge Patient Disposition: Home Clinical Impression: Abdominal pain Condition: Stable Prescriptions: New hydrocodone-acetaminophen 5-325 mg tablet 1 tab PO Q6H PRN (Reason: pain) Qty: 14 0RF ondansetron 4 mg tablet,disintegrating 4 mg PO Q6H PRN (Reason: nausea and vomiting) Qty: 14 0RF No Action esomeprazole magnesium [Nexium] 20 mg capsule,delayed release(DR/EC) 20 mg PO DAILY ciprofloxacin HCl [Cipro] 500 mg tablet 500 mg PO BID Claritin-D 12 Hour 5-120 mg tablet extended release 12 hr 1 tab PO DAILY Discharge Orders: Discharge ED (Routine); Ordered 07/20/22 Ordered By: Theresa Adams Referrals: Aleida Alamo MD [Physician] - 1-3 days Discharge Diet: Advance as tolerated Discharge Activity: Resume usual activity Patient Instructions: Abdominal Pain (ED), Opioid Safety Coding Level of Care Code ED 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 Operator 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 for Chg Fwd Documented by User: Theresa Adams MD 07/20/22 19:36 HPI - Abdominal Pain General: Chief Complaint: Abdominal Pain Stated Complaint: swelling Time Seen by Provider: 07/20/22 16:58 PFSH ED PFSH: Medical History Acute sinusitis Hypertension Surgical History Tubal ligation status Family History Denies family history of Colon cancer Pancreatic cancer Ovarian cancer Diabetes Breast cancer Cancer Hypertension Uterine cancer Thyroid disease Stroke Course Vital Signs: Vital signs: Vital Signs Temperature 97.9 F 07/20/22 16:50 Pulse Rate 107 H 07/20/22 16:50 Respiratory Rate 16 07/20/22 16:50 Blood Pressure 167/124 07/20/22 16:50 Pulse Oximetry 99 07/20/22 16:50 Oxygen Delivery Me thod 07/20/22 16:50 MDM - Abdominal Pain Medical Decision Making Patient presents here with abdominal pain likely postop pain her CT scan and blood work here are all normal we will prescribe her pain meds she is stable for discharge she is to follow-up with PCP and return if worsening. Lab Data 07/20/22 17:52 07/20/22 17:52 Labs/Radiology: Radiology Impressions Abdomen/Pelvis CT 07/20/22 17:03 IMPRESSION: 1. Prominent fluid in the small bowel without dilation suggestive of an enteritis. 2. Fibroid uterus with possible adenomyosis, please refer to prior ultrasound report for additional discussion. 3. Hepatic steatosis. 4. Constipation. Laboratory Results WBC 12.0 10^3/uL (4.0-10.0) H 07/20/22 17:52 RBC 4.35 10^6/uL (4.1-5.3) 07/20/22 17:52 Hgb 12.0 g/dL (11.5-15.3) 07/20/22 17:52 Hct 37.3 % (37.0-47.0) 07/20/22 17:52 MCV 85.7 fl (81-99) 07/20/22 17:52 MCH 27.6 pg (28.0-34.0) L 07/20/22 17:52 MCHC 32.2 g/dL (30.0-36.0) 07/20/22 17:52 RDW 12.8 % (12.1-15.1) 07/20/22 17:52 Plt Count 389 10^3/cmm (130-400) 07/20/22 17:52 MPV 11.2 fL (7.4-10.4) H 07/20/22 17:52 Neut % (Auto) 67.1 % 07/20/22 17:52 Lymph % (Auto) 22.7 % 07/20/22 17:52 [place] % (Auto) 7.8 % 07/20/22 17:52 Eos % (Auto) 1.5 % 07/20/22 17:52 Baso % (Auto) 0.6 % 07/20/22 17:52 Neut # (Auto) 8.05 10^3/uL (1.8-7.7) H 07/20/22 17:52 Lymph # (Auto) 2.7 10^3/uL (0.8-4.8) 07/20/22 17:52 [place] # (Auto) 0.9 10^3/uL (0.2-0.9) 07/20/22 17:52 Eos # (Auto) 0.2 10^3/uL (0.0-0.8) 07/20/22 17:52 Baso # (Auto) 0.1 10^3/uL (0.0-0.1) 07/20/22 17:52 Nucleated RBC % (auto) 0 % 07/20/22 17:52 Nucleated RBCs # 0.0 /100WBC 07/20/22 17:52 PT 12.60 SECONDS (12.1-14.9) 07/20/22 17:52 INR 0.91 (0.8-1.2) 07/20/22 17:52 APTT 27.8 SECONDS (23.9-36.7) 07/20/22 17:52 Sodium 139 mmol/L (136-145) 07/20/22 17:52 Potassium 3.2 mmol/L (3.5-5.1) L 07/20/22 17:52 Chloride 101 mmol/L (98-107) 07/20/22 17:52 Carbon Dioxide 27 mmol/L (22-29) 07/20/22 17:52 Anion Gap 14.2 (5-19) 07/20/22 17:52 BUN 14 mg/dL (6-20) 07/20/22 17:52 Creatinine 0.6 mg/dL (0.5-0.9) 07/20/22 17:52 GFR Calculation 104.2 mL/min (90-130) 07/20/22 17:52 Glucose 93 mg/dL (65-115) 07/20/22 17:52 Calculated Osmolality 288 mOsm/kg (285-295) 07/20/22 17:52 Calcium 9.9 mg/dL (8.5-10.5) 07/20/22 17:52 Total Bilirubin 0.2 mg/dL (0.15-1.2) 07/20/22 17:52 AST 28 U/L (0-32) 07/20/22 17:52 ALT 40 U/L (0-33) H 07/20/22 17:52 Alkaline Phosphatase 89 U/L (35-105) 07/20/22 17:52 Total Protein 7.3 g/dL (6.6-8.7) 07/20/22 17:52 Albumin 4.9 g/dL (3.5-5.2) 07/20/22 17:52 Globulin 2.4 g/dL (1.3-4.6) 07/20/22 17:52 Lipase 15 U/L (13-60) 07/20/22 17:52 Urine Color Colorless (Yellow) 07/20/22 18:40 Urine Appearance Clear (CLEAR) 07/20/22 18:40 Urine pH 7 (5-7) 07/20/22 18:40 Ur Specific [place] 1.005 (1.005-1.030) 07/20/22 18:40 Urine Protein Neg (Negative) 07/20/22 18:40 Urine Glucose (UA) Norm (Normal) 07/20/22 18:40 Urine Ketones Negative (Negative) 07/20/22 18:40 Urine Blood 2+ (Negative) H 07/20/22 18:40 Urine Nitrate Negative (Negative) 07/20/22 18:40 Urine Bilirubin Neg (Negative) 07/20/22 18:40 Urine Urobilinogen Neg mg/dL (Negative) 07/20/22 18:40 Ur Leukocyte Esterase Negative (Negative) 07/20/22 18:40 Urine RBC Rare /hpf (0-2) 07/20/22 18:40 Urine WBC Rare /hpf (0-5) 07/20/22 18:40 Ur Squamous Epith Cells Rare /hpf (0-5) 07/20/22 18:40 Amorphous Sediment Not Reportable 07/20/22 18:40 Urine Bacteria None /hpf (NONE) 07/20/22 18:40 Discharge Plan Discharge Patient Disposition: Home Clinical Impression: Abdominal pain Condition: Stable Prescriptions: New hydrocodone-acetaminophen 5-325 mg tablet 1 tab PO Q6H PRN (Reason: pain) Qty: 14 0RF ondansetron 4 mg tablet,disintegrating 4 mg PO Q6H PRN (Reason: nausea and vomiting) Qty: 14 0RF No Action esomeprazole magnesium [Nexium] 20 mg capsule,delayed release(DR/EC) 20 mg PO DAILY ciprofloxacin HCl [Cipro] 500 mg tablet 500 mg PO BID Claritin-D 12 Hour 5-120 mg tablet extended release 12 hr 1 tab PO DAILY Discharge Orders: Discharge ED (Routine); Ordered 07/20/22 Ordered By: Theresa Adams Referrals: Aleida Alamo MD [Physician] - 1-3 days Discharge Diet: Advance as tolerated Discharge Activity: Resume usual activity Patient Instructions: Abdominal Pain (ED), Opioid Safety Coding Level of Care Code ED Dry Press Operator Helper for Chrisg Tarsha
[2022-07-20 17:59] LABS: Basophils # 0.1 10^3/uL (0.0-0.1); Basophils % 0.6 %; Eosinophils # 0.2 10^3/uL (0.0-0.8); Eosinophils % 1.5 %; Hematocrit 37.3 % (37.0-47.0); Lymphocytes # 2.7 10^3/uL (0.8-4.8); Lymphocytes % 22.7 %; Mean Corpuscular HGB Conc 32.2 g/dL (30.0-36.0); Mean Corpuscular Hemoglobin 27.6 pg (28.0-34.0); Mean Corpuscular Volume 85.7 fl (81-99); Mean Platelet Volume 11.2 fL (7.4-10.4); Monocytes # 0.9 10^3/uL (0.2-0.9); Monocytes % 7.8 %; Neutrophils # 8.05 10^3/uL (1.8-7.7); Neutrophils % 67.1 %; Nucleated Red Blood Cells % 0 %; Platelet Count 389 10^3/cmm (130-400); Red Blood Count 4.35 10^6/uL (4.1-5.3); Red Cell Distribution Width 12.8 % (12.1-15.1)
[2022-07-20] MEDS: iohexol 350 mg/mL 500 mL Btl (per mL) IV (18:10)
[2022-07-20 18:18] LABS: Alanine Aminotransferase 40 U/L (0-33); Albumin Level 4.9 g/dL (3.5-5.2); Alkaline Phosphatase 89 U/L (35-105); Anion Gap 14.2 (5-19); Aspartate Amino Transferase 28 U/L (0-32); Blood Urea Nitrogen 14 mg/dL (6-20); Calcium 9.9 mg/dL (8.5-10.5); Carbon Dioxide 27 mmol/L (22-29); Chloride 101 mmol/L (98-107); Globulin 2.4 g/dL (1.3-4.6); Glomerular Filtration Rate 104.2 mL/min (90-130); Glucose 93 mg/dL (65-115); Lipase 15 U/L (13-60); Osmolality Calculated 288 mOsm/kg (285-295); Potassium 3.2 mmol/L (3.5-5.1); Sodium 139 mmol/L (136-145); Total Bilirubin 0.2 mg/dL (0.15-1.2); Total Protein 7.3 g/dL (6.6-8.7)
[2022-07-20 18:19] LABS: INR 0.91 (0.8-1.2)
[2022-07-20 18:20] LABS: Partial Thromboplastin Time 27.8 SECONDS (23.9-36.7)
[2022-07-20 19:15] LABS: Add Urine Microscopic? YES; Bilirubin Urine Neg (Negative); Blood Urine 2+ (Negative); Glucose Urine UA Norm (Normal); Ketones Urine Negative (Negative); Leukocyte Esterase Urine Negative (Negative); Nitrate Urine Negative (Negative); Protein Urine Neg (Negative); Specific Gravity, Urine 1.005 (1.005-1.030); Urine Appearance Clear (CLEAR); Urine Color Colorless (Yellow); Urobilinogen Urine Neg (Negative); pH Urine 7 (5-7)
[2022-07-20 19:16] LABS: RBC Urine RARE /hpf (0-2); Squamous Epithelial Cell Urine RARE /hpf (0-5); WBC Urine RARE /hpf (0-5)
[2022-07-20 19:18] LABS: Add Urine Culture? No
--- NOTE | 2022-07-21 15:26 | PC.SOCIAL ---
Addendum entered by Marci Agee 08/01/22 08:53: appointment cancelled Original Note: PCP appt Contacted patient and offered PCP appt. Appt scheduled with Dr. Gunn on 07/31 at 315. Patient aware.
== END 2022-07-20 19:31 | disposition home or self-care (01) ==
PROVIDERS: Family Medicine; Emergency Provider Emergency Medicine
DX: D25.9 Leiomyoma of uterus, unspecified (principal); K59.00 Constipation, unspecified; K76.0 Fatty (change of) liver, not elsewhere classified; I10 Essential (primary) hypertension
CPT/HCPCS: 74177; 80053; 81000; 81001; 83690; 85025; 85610; 85730; 87086; 99285; Q9967

== ENCOUNTER → 2022-08-05 13:39 | Outpatient (BNVA) | payer OTHER, SELFPAY | PROVIDERS: Visit Provider Emergency Medicine | DX: J02.9 Acute pharyngitis, unspecified (principal); J00 Acute nasopharyngitis [common cold]; Z20.818 Contact with and (suspected) exposure to other bacterial communicable diseases; I10 Essential (primary) hypertension | CPT/HCPCS: 87880 ==

== ENCOUNTER 2022-09-12 10:03 | Observation (INO) | payer OTHER, SELFPAY ==
[2022-09-08 10:43] VITALS: BMI 22.2
[2022-09-08 11:33] LABS: Basophils % 0.4 %; Eosinophils # 0.1 10^3/uL (0.0-0.8); Eosinophils % 1.1 %; Hematocrit 39.3 % (37.0-47.0); Hemoglobin 12.3 g/dL (11.5-15.3); Lymphocytes # 1.5 10^3/uL (0.8-4.8); Lymphocytes % 17.2 %; Mean Corpuscular HGB Conc 31.3 g/dL (30.0-36.0); Mean Corpuscular Hemoglobin 26.6 pg (28.0-34.0); Mean Corpuscular Volume 85.1 fl (81-99); Mean Platelet Volume 11.7 fL (7.4-10.4); Monocytes # 0.6 10^3/uL (0.2-0.9); Monocytes % 7.6 %; Neutrophils # 6.19 10^3/uL (1.8-7.7); Neutrophils % 73.5 %; Nucleated Red Blood Cells % 0 %; Platelet Count 360 10^3/cmm (130-400); Red Blood Count 4.62 10^6/uL (4.1-5.3); Red Cell Distribution Width 13.7 % (12.1-15.1); White Blood Count 8.4 10^3/uL (4.0-10.0)
[2022-09-08 11:50] LABS: Anion Gap 15.4 (5-19); Blood Urea Nitrogen 7 mg/dL (6-20); Calcium 9.1 mg/dL (8.5-10.5); Carbon Dioxide 25 mmol/L (22-29); Chloride 102 mmol/L (98-107); Glomerular Filtration Rate 128.6 mL/min (90-130); Glucose 91 mg/dL (65-115); Osmolality Calculated 286 mOsm/kg (285-295); Potassium 3.4 mmol/L (3.5-5.1); Sodium 139 mmol/L (136-145)
--- NOTE | 2022-09-08 15:23 | ANES.PREANE2 ---
Pre-Anesthetic Assessment Height/Weight: Height 1.52 m Weight 51.71 kg Preop Diagnosis: AUB Operation Date: 09/12/22 08:40 Proposed Procedures p Laparoscopic assisted vaginal hysterectomy, bilateral salpingectomy 92922,N80.03, N81.4,N93.9(Not Applicable) - Aleida Alamo MD s Laparoscopic Salpingostomy(Not Applicable) - Aleida Alamo MD Familial anesthetic complications: none Was Beta Brissa taken within 24 hours: N/A Was Clonidine taken within 24 hours: N/A Social No alcohol and No tobacco Exam alert, oriented x 3, clear to auscultation bilaterally and regular rate & rhythm Airway Submandibular: within normal limits Cervical ROM: within normal limits Mallampati: Class II Dentition: full History/ROS No significant history except as noted GI Gastroesophageal Reflux Disease Anesthetic Plan ASA status: 2 Anesthesia: General Medications/Allergies Home Medications Medication Instructions Recorded Confirmed Last Taken Type esomeprazole magnesium 20 mg 20 mg PO DAILY 03/13/21 09/08/22 09/08/22 History capsule,delayed release (Nexium) loratadine 5 mg-pseudoephedrine ER 1 tab PO DAILY 07/10/22 09/08/22 09/08/22 History 120 mg tablet,extended release,12hr (Claritin-D 12 Hour) Allergies Allergy/AdvReac Type Severity Reaction Status Date / Time Sulfa (Sulfonamide Allergy ALGY-Hives Verified 09/08/22 10:42 Antibiotics) [facility] Anesthesia Medical History Acute sinusitis Hypertension Hypertension Surgical History Tubal ligation status Family History Denies family history of Colon cancer Pancreatic cancer Ovarian cancer Diabetes Breast cancer Cancer Hypertension Uterine cancer Thyroid disease Stroke Female Reproductive History Date of last menstrual period: 08/08/22 Data Anesthesia 09/08/22 10:53 09/08/22 10:53 Short CBC 09/08/22 Range/Units 10:53 WBC 8.4 (4.0-10.0) 10^3/uL Hgb 12.3 (11.5-15.3) g/dL Hct 39.3 (37.0-47.0) % MCV 85.1 (81-99) fl Plt Count 360 (130-400) 10^3/cmm Neut % (Auto) 73.5 % Neut # (Auto) 6.19 (1.8-7.7) 10^3/uL BMP 09/08/22 10:53 Sodium 139 Potassium 3.4 L Chloride 102 Carbon Dioxide 25 BUN 7 Creatinine 0.5 Glucose 91 Calcium 9.1 Cardiac Studies: No Data to Display
[2022-09-12] VITALS (20 sets, daily range): BP systolic 112–157; BP diastolic 66–112; PULSE 78–99; RESP 14–20; TEMP 36.1–36.8; O2SAT 91–100
[2022-09-12] MEDS: scopolamine 1.5 Patch 1 PATCH TRANSDERMA (06:26)
[2022-09-12] MEDS: acetaminophen 1,000 MG/100 ML PIGGYBACK 400 MG IV (06:27)
[2022-09-12] MEDS: phenazopyridine 100 mg Tablet 200 MG PO ×2 (06:28→22:04)
[2022-09-12] MEDS: sodium chloride 0.9% 1,000 ML 30 ML IV (06:28)
[2022-09-12] MEDS: CELEcoxib 200 mg Capsule 400 MG PO (06:29)
[2022-09-12] MEDS: gabapentin 300 mg Capsule PO (06:29)
--- NOTE | 2022-09-12 06:53 | W.PM.OPSUD ---
Surgery/Procedure H&P Update DATE OF PROCEDURE: September 12, 2022 DATE H&P PERFORMED: 09/08/22 H&P UPDATE INFORMATION: I have reviewed H&P completed within last 30 days, I have examined patient prior to procedure and No changes to prior documentation PREOP DIAGNOSIS: aub, uterine prolapse PLANNED PROCEDURE: Operation Date: 09/12/22 07:00 Proposed Procedures p Laparoscopic assisted vaginal hysterectomy, bilateral salpingectomy 29328,N80.03, N81.4,N93.9(Not Applicable) - Aleida Alamo MD s Laparoscopic Salpingostomy(Not Applicable) - Aleida Alamo MD Related Problem List Diagnoses (1) Adenomyosis: (2) Uterine prolapse: (3) Abnormal uterine bleeding:
[2022-09-12] MEDS: midazolam 1 mg/mL INJ 2 mL 2 MG IVP (06:56)
[2022-09-12] MEDS: ceFAZolin 2,000 MG in sodium chloride 0.9% (plus) 50 ML 100 MG IV ×3 (07:03→22:47)
[2022-09-12 07:28] LABS: OR HCG Qualitative Urine Negative (Negative)
[2022-09-12] MEDS: vasopressin 20 unit/mL INJ INJECTION (08:12)
--- NOTE | 2022-09-12 09:16 | P.OP_ITS ---
Operative Report Date of procedure: September 12, 2022 Pre-op diagnosis: Preop Diagnosis aub, uterine prolapse Post-op diagnosis: same Post-op findings: 8 week sized uterus. Normal appearing ovaries. appearance of previous tubal Procedure done: LAVH, bilateral salpingectomy Specimens removed/disposition: uterus and bilateral tubal segments to pathology Surgeon: Aleida Alamo Anesthesia: General Estimated blood loss (mL): 200 IV fluids (mL): 1,000 Urine output (mL): 300 Complications: none Condition: stable Disposition: PACU Procedure: The patient was taken to the operating room where general anesthesia was administered and found to be adequate. She was prepped and draped in the normal sterile fashion in the dorsal lithotomy position in [facility]. A Hernandez catheter was placed. A weighted speculum was placed into the vagina and the anterior lip of the cervix was grasped with a single tooth tenaculum. The Zumi uterine manipulator was placed. The weighted speculum was removed. The gloves were changed and attention was turned to the abdomen. A 5 mm supraumbilical incision was made. Using a 5 mm port with the camera, the port was placed into the abdomen. The abdomen was insufflated. Two low, lateral 5 mm ports were placed on the left and right under direct visualization from the camera. bilateral ureters were identified. The right tube was grasped and elevated. Using the laparoscopic cautery, the mesosalpinx was divided between the ovary and tube. The tube was removed. This was performed the same way on the left. The uteroovarian ligaments as well as the round ligaments were ligated. Attention was then turned to the vaginal portion of the procedure. The weighted speculum was placed into the vagina. The zumi manipulator was removed. The single tooth tenaculum was removed and replaced with the oliver's tenaculum. 10 mL of dilute Pitressin was injected at the vesicovaginal ju nction. A circumferential incision was made at the vesicovaginal junction and the vaginal mucosa reflected cephalad. The posterior peritoneum was entered sharply with the Metzenbaum scissors and the long weighted speculum replaced. Using the Cristela clamps the uterosacral ligaments were clamped cut and suture- ligated. The anterior peritoneum was entered sharply with the metzenbaum scissors. Then sequentially the uterine arteries and cardinal ligaments were clamped cut and suture-ligated. A single-tooth tenaculum was used to deliver the uterus. The remaining segement of the utero-ovarian ligaments were clamped cut and suture-ligated bilaterally and the specimen was removed. There was good hemostasis with only mild bleeding from the cuff. The peritoneum was closed with a pursestring using 2-0 Vicryl. The vaginal cuff was closed with 0 Vicryl in a running locked pattern incorporating the uterosacral ligaments into the lateral aspects of the vaginal cuff. The Hernandez catheter was removed and the cystoscope advanced into the bladder. The patient was given pyridium and bilateral spill was noted. There were no injuries or deficits noted in the bladder. The cystoscope was removed and the Hernandez was replaced. Vaginal packing was placed for good hemostasis. The gloves and gowns were changed and attention was turned to the abdomen. The ports were closed with 2-0 monocryl with skin glue. The patient tolerated the procedure well. Sponge lap and needle counts were correct x3. She was taken to the recovery room in stable condition.
--- NOTE | 2022-09-12 09:27 | PC.NURSE ---
Pt arrived to PACU, resting comfortably, peripad in place, no drainage noted. Hernandez catheter patent and draining.
[2022-09-12] MEDS: fentaNYL 50 mcg/mL INJ 2mL IVP ×2 (09:31→09:45)
[2022-09-12] MEDS: ondansetron 2 mg/ML SDV 2 mL 4 MG IVP ×2 (09:34→17:20)
[2022-09-12] MEDS: dextrose 5%-lactated ringers 1,000 ML 125 ML IV ×2 (10:51)
[2022-09-12] MEDS: metoclopramide 5 mg/mL SDV 2 mL 10 MG IVP (10:52)
[2022-09-12] MEDS: HYDROcodone-acetaminophen 5-325 mg Tablet PO (12:18)
--- NOTE | 2022-09-12 13:57 | ANE.PACU2 ---
Inpatient post-anesthesia follow up: Airway intact: Yes Vital signs: Temperature 97.5 F Pulse Rate 96 Respiratory Rate 16 Blood Pressure 150/97 Pulse Oximetry 94 Oxygen Delivery Me thod Room Air Oxygen Flow Rate 2 Fraction of Inspir ed Oxygen Hydration adequate: Yes Nausea and vomiting: No Pain level: 1 Mental status: Baseline
[2022-09-12] MEDS: ketorolac 30 mg/mL INJ IVP ×2 (14:15→19:29)
[2022-09-13] MEDS: ketorolac 30 mg/mL INJ IVP (01:01)
[2022-09-13] MEDS: HYDROcodone-acetaminophen 5-325 mg Tablet PO (02:37)
[2022-09-13 04:00] VITALS: BP 146/84; PULSE 86; RESP 16; TEMP 36.8; O2SAT 96
--- NOTE | 2022-09-13 05:18 | PC.NURSE ---
Vaginal packing was removed @0455 with scant amount of blood on packing. Patient tolerated well.
[2022-09-13 05:19] LABS: Hematocrit 36.9 % (37.0-47.0); Hemoglobin 11.5 g/dL (11.5-15.3); Mean Corpuscular HGB Conc 31.2 g/dL (30.0-36.0); Mean Corpuscular Hemoglobin 26.2 pg (28.0-34.0); Mean Corpuscular Volume 84.1 fl (81-99); Mean Platelet Volume 11.4 fL (7.4-10.4); Platelet Count 383 10^3/cmm (130-400); Red Blood Count 4.39 10^6/uL (4.1-5.3); Red Cell Distribution Width 13.6 % (12.1-15.1)
[2022-09-13] MEDS: ibuprofen 800 mg tablet PO (08:36)
[2022-09-13] MEDS: docusate sodium 100 mg Capsule PO (08:36)
[2022-09-13] MEDS: phenazopyridine 100 mg Tablet 200 MG PO (08:36)
[2022-09-13] MEDS: pantoprazole DR 40 mg Tablet PO (08:36)
--- NOTE | 2022-09-13 09:54 | PM.DCS ---
Discharge Providers Date of Admission: 09/12/22 10:03 Date of Discharge: September 13, 2022 Attending Provider at Admission: Aleida Alamo MD Attending Provider at Discharge: Aleida Alamo MD Diagnoses at Discharge Discharge Diagnosis (1) Adenomyosis: Status: Acute (2) Uterine prolapse: Status: Acute (3) Abnormal uterine bleeding: Status: Acute Reason for Visit Reason for Visit: N80.03, N81.4, N93.9 Physical Exam Narrative: The patient is doing well. No concerns today. Packing and ayon have been removed Const: COMMON NORMALS: no acute distress, average body habitus, patient oriented x3, no limitations, healthy appearing, alert and well nourished GENERAL APPEARANCE: cooperative, comfortable, well kempt and well developed ORIENTATION/CONSCIOUSNESS: Yes awake, Yes oriented to person, Yes oriented to place and Yes oriented to time Resp: COMMON NORMALS: normal respiratory effort EFFORT & INSPECTION: Yes able to speak in complete sentences GI: COMMON NORMALS: Soft to palpation and non-tender PALPATION: Yes Soft to palpation Extremity: COMMON NORMALS: no calf tenderness Neuro: COMMON NORMALS: patient oriented x3 SENSORIUM/ORIENTATION: Yes alert, Yes oriented to person, Yes oriented to place and Yes oriented to time Psych: APPEARANCE: Yes well kempt Urinary Catheter Management: Ayon: Cath Placed During This Visit: yes, but has since been removed by the nurse Reason for Continuing Indwelling Catheter: Decision to DC Catheter Urinary Catheter Date of Insertion: 09/12/22 Urinary Catheter Time of Insertion: 07:30 Date Urinary Catheter Removed: 09/13/22 Time Urinary Catheter Discontinued: 04:55 Discharge Data Studies Completed and Pending Pending at discharge Category Date Time Status Urine Culture Routine Lab 09/12/22 07:31 Results Pathology: Surgical [PTH] Routine Pth 09/12/22 09:13 Received Laboratory Results WBC 17.0 10^3/uL (4.0-10.0) H 09/13/22 04:55 RBC 4.39 10^6/uL (4.1-5.3) 09/13/22 04:55 Hgb 11.5 g/dL (11.5-15.3) 09/13/22 04:55 Hct 36.9 % (37.0-47.0) L 09/13/22 04:55 MCV 84.1 fl (81-99) 09/13/22 04:55 MCH 26.2 pg (28.0-34.0) L 09/13/22 04:55 MCHC 31.2 g/dL (30.0-36.0) 09/13/22 04:55 RDW 13.6 % (12.1-15.1) 09/13/22 04:55 Plt Count 383 10^3/cmm (130-400) 09/13/22 04:55 MPV 11.4 fL (7.4-10.4) H 09/13/22 04:55 Neut % (Auto) 73.5 % 09/08/22 10:53 Lymph % (Auto) 17.2 % 09/08/22 10:53 [place] % (Auto) 7.6 % 09/08/22 10:53 Eos % (Auto) 1.1 % 09/08/22 10:53 Baso % (Auto) 0.4 % 09/08/22 10:53 Neut # (Auto) 6.19 10^3/uL (1.8-7.7) 09/08/22 10:53 Lymph # (Auto) 1.5 10^3/uL (0.8-4.8) 09/08/22 10:53 [place] # (Auto) 0.6 10^3/uL (0.2-0.9) 09/08/22 10:53 Eos # (Auto) 0.1 10^3/uL (0.0-0.8) 09/08/22 10:53 Baso # (Auto) 0.0 10^3/uL (0.0-0.1) 09/08/22 10:53 Nucleated RBC % (auto) 0 % 09/08/22 10:53 Nucleated RBCs # 0.0 /100WBC 09/08/22 10:53 Sodium 139 mmol/L (136-145) 09/08/22 10:53 Potassium 3.4 mmol/L (3.5-5.1) L 09/08/22 10:53 Chloride 102 mmol/L (98-107) 09/08/22 10:53 Carbon Dioxide 25 mmol/L (22-29) 09/08/22 10:53 Anion Gap 15.4 (5-19) 09/08/22 10:53 BUN 7 mg/dL (6-20) 09/08/22 10:53 Creatinine 0.5 mg/dL (0.5-0.9) 09/08/22 10:53 GFR Calculation 128.6 mL/min (90-130) 09/08/22 10:53 Glucose 91 mg/dL (65-115) 09/08/22 10:53 Calculated Osmolality 286 mOsm/kg (285-295) 09/08/22 10:53 Calcium 9.1 mg/dL (8.5-10.5) 09/08/22 10:53 Urine HCG, Qual Negative (Negative) 09/12/22 06:48 Blood Type A Positive 09/12/22 06:17 Rho(D) Type Positive 09/12/22 06:17 Antibody Screen Negative 09/12/22 06:17 Vitals Last Vital Signs Temp 98.3 F 09/13/22 04:00 Pulse 86 09/13/22 04:00 Resp 16 09/13/22 04:00 BP 146/84 09/13/22 04:00 Pulse Ox 96 09/13/22 04:00 O2 Del Method Room Air 09/13/22 04:00 O2 Flow Rate 2 09/12/22 09:54 Discharge Plan Discharge Patient Disposition: Home Condition: Stable Prescriptions: New ibuprofen 800 mg Tablet 800 mg PO Q8H Qty: 30 0RF hydrocodone-acetaminophen 5-325 mg Tablet 1 tab PO Q4H PRN (Reason: Moderate To Severe Pain) Qty: 30 0RF docusate sodium 100 mg Capsule 100 mg PO BID Qty: 60 0RF Continued esomeprazole magnesium [Nexium] 20 mg capsule,delayed release(DR/EC) 20 mg PO DAILY Claritin-D 12 Hour 5-120 mg tablet extended release 12 hr 1 tab PO DAILY Discharge Orders: Discharge Order (Routine); Ordered 09/13/22 Ordered By: Aleida Alamo Patient Instructions: Salpingectomy (DC), Laparoscopic Hysterectomy (DC), OB Discharge Report, OB Anesthesia Instructions, OB Food/Drug Interaction Guide, Opioid Safety Discharge Attestations Time Spent in Discharge Care*: less than 30 min Quality Metrics Clinical Quality Measures [ No reported AMI, CVA or VTE this stay] Coding Level of Care Code Acute Code for Chg Fwd Diagnoses Adenomyosis N80.03 Uterine prolapse N81.4 Abnormal uterine bleeding N93.9
[2022-09-13 10:30] VITALS: BP 145/89; PULSE 87; RESP 16; TEMP 36.6; O2SAT 98
[2022-09-13 11:40] VITALS: BP 155/98; PULSE 99; RESP 16; TEMP 36.5; O2SAT 97
== END 2022-09-13 11:38 | disposition home or self-care (01) ==
LOC: OBGYN 10:03
PROVIDERS: Anesthesiology; Admitting Provider Obstetrics & Gynecology; Visit Provider Obstetrics & Gynecology
PROC: 0UT9FZZ Resection of Uterus, Via Natural or Artificial Opening With Percutaneous Endoscopic Assistance (ICD-10-PCS; CPT 58552; principal; 2022-09-12 07:00)
PROC: (CPT 58673; 2022-09-12 07:00)
DX: N81.4 Uterovaginal prolapse, unspecified (principal); N80.03 Adenomyosis of the uterus; D25.9 Leiomyoma of uterus, unspecified; N88.8 Other specified noninflammatory disorders of cervix uteri; N83.8 Other noninflammatory disorders of ovary, fallopian tube and broad ligament; K21.9 Gastro-esophageal reflux disease without esophagitis; I10 Essential (primary) hypertension; Z88.2 Allergy status to sulfonamides
CPT/HCPCS: 58552; 36415; 80048; 81025; 84703; 85025; 85027; 86850; 86900; 87086; 88305; 96374; 96376; G0378; J0131; J0690; J1100; J1170; J1885; J2250; J2405; J2704; J2710; J2765; J3010; J3490; J7030; J7121

== ENCOUNTER 2022-09-19 21:39 | Emergency (ER) | payer OTHER, SELFPAY ==
[2022-09-19 21:41] VITALS: BP 180/116; PULSE 104; RESP 17; TEMP 36.4; O2SAT 97
[2022-09-19 22:14] LABS: Basophils # 0.1 10^3/uL (0.0-0.1); Basophils % 0.5 %; Eosinophils # 0.2 10^3/uL (0.0-0.8); Eosinophils % 1.7 %; Hematocrit 38.5 % (37.0-47.0); Hemoglobin 12.1 g/dL (11.5-15.3); Lymphocytes # 2.6 10^3/uL (0.8-4.8); Lymphocytes % 19.5 %; Mean Corpuscular HGB Conc 31.4 g/dL (30.0-36.0); Mean Corpuscular Hemoglobin 26.5 pg (28.0-34.0); Mean Corpuscular Volume 84.2 fl (81-99); Monocytes % 7.4 %; Neutrophils # 9.26 10^3/uL (1.8-7.7); Neutrophils % 70.3 %; Nucleated Red Blood Cells % 0 %; Platelet Count 408 10^3/cmm (130-400); Red Blood Count 4.57 10^6/uL (4.1-5.3); Red Cell Distribution Width 13.9 % (12.1-15.1); White Blood Count 13.2 10^3/uL (4.0-10.0)
[2022-09-19 22:34] LABS: Alanine Aminotransferase 119 U/L (0-33); Albumin Level 4.5 g/dL (3.5-5.2); Alkaline Phosphatase 128 U/L (35-105); Anion Gap 14.7 (5-19); Aspartate Amino Transferase 94 U/L (0-32); Blood Urea Nitrogen 11 mg/dL (6-20); Calcium 9.5 mg/dL (8.5-10.5); Carbon Dioxide 28 mmol/L (22-29); Chloride 101 mmol/L (98-107); Globulin 2.6 g/dL (1.3-4.6); Glomerular Filtration Rate 166.3 mL/min (90-130); Glucose 98 mg/dL (65-115); Lipase 16 U/L (13-60); Osmolality Calculated 289 mOsm/kg (285-295); Potassium 3.7 mmol/L (3.5-5.1); Sodium 140 mmol/L (136-145); Total Bilirubin 0.2 mg/dL (0.15-1.2); Total Protein 7.1 g/dL (6.6-8.7)
--- NOTE | 2022-09-19 22:34 | CTR_ITS ---
PROCEDURE INFORMATION: Exam: CT Abdomen And Pelvis With Contrast Exam date and time: 09/19/2022 10:58 PM Age: 56 years old Clinical indication: Abdominal pain; Other: Pelvic; Prior surgery; Surgery date: 3-7 days post-operative; Surgery type: Hysterectomy; Additional info: Abd pain TECHNIQUE: Imaging protocol: Computed tomography of the abdomen and pelvis with contrast. Radiation optimization: All CT scans at this facility use at least one of these dose optimization techniques: automated exposure control; mA and/or kV adjustment per patient size (includes targeted exams where dose is matched to clinical indication); or iterative reconstruction. Contrast material: OMNI 350; Contrast volume: 70 ml; Contrast route: INTRAVENOUS (IV); REPORTING DATA: Count of CT and Cardiac NM exams in prior 12 months: This patient has received 3 known CTs and 0 known cardiac nuclear medicine studies in the 12 months prior to the current study. COMPARISON: CT abdomen pelvis w con* [id number] 07/20/2022 6:06 PM RADIATION DOSE METRICS: Total DLP (mGy-cm): 690.7 FINDINGS: Liver: There is no focal abnormality within the liver. Gallbladder and bile ducts: The gallbladder is normal. Pancreas: The pancreas is normal. Spleen: The spleen is normal. Adrenal glands: The adrenal glands are normal. Kidneys and ureters: The kidneys are normal. There is no evidence of hydronephrosis. There is no evidence of renal or ureteral calcifications. Stomach and bowel: There is no evidence of colitis/diverticulitis. Appendix: A normal appendix is identified. Intraperitoneal space: Unremarkable. No free air. No significant fluid collection. Vasculature: Unremarkable. No abdominal aortic aneurysm. Lymph nodes: Unremarkable. No enlarged lymph nodes. Urinary bladder: Unremarkable as visualized. Reproductive: There are postsurgical changes of recent hysterectomy. There is some mild fluid density within the pelvis which is not unusual for recent postoperative status. No large pelvic hematoma or evidence of surgical complication is identified. Bones/joints: There is mild scoliosis concave to the right. The lumbar spine demonstrates moderate degenerative changes at multiple levels. Soft tissues: See Reproductive finding. CT/CT abdomen pelvis w con* [id number] IMPRESSION: Expected postoperative changes of recent hysterectomy. No acute abnormality.
--- NOTE | 2022-09-19 22:35 | ED_ITS ---
HPI - Female Genitourinary General: Chief complaint: Urogenital-Female Stated complaint: post op pain, pt thinks UTI Time Seen by Provider: 09/19/22 22:22 Source: patient Mode of arrival: ambulatory Limitations: no limitations History of Present Illness: 56-year-old female who had a hysterectomy 1 week ago she states that today she has been having lower abdominal pain that is worsened throughout the day. States it feels like it is over her bladder she has had increased urination along with some pain with urination she rates her pain a 7 out of 10 denies any bleeding denies any fever denies any worsening proving factors. Associated symptoms: Reports abdominal pain; Deny headache(s) or nausea Review of Systems Const: Denies: fever(s), chills, body aches or change in appetite ENMT: Denies: throat pain or dental pain Card: Denies: chest pain Resp: Denies: dyspnea GI: Reports: abdominal pain; Denies: nausea, vomiting or diarrhea : Denies: dysuria Musc: Denies: neck pain or back pain Skin/Breast: Denies: rash Neuro: Denies: headache(s) PFSH ED PFSH: Medical History Abnormal uterine bleeding Acute sinusitis Adenomyosis Hypertension Hypertension Uterine prolapse Surgical History Tubal ligation status Family History Denies family history of Colon cancer Pancreatic cancer Ovarian cancer Diabetes Breast cancer Cancer Hypertension Uterine cancer Thyroid disease Stroke Physical Exam Const: COMMON NORMALS: no acute distress, patient oriented x3 and healthy appearing HENMT: COMMON NORMALS: normocephalic and atraumatic HEAD & SCALP: normocephalic and atraumatic Eye: COMMON NORMALS: conjunctivae normal CONJUNCTIVA: Yes conjunctivae normal Neck/C-Spine: COMMON NORMALS: full ROM and supple Chest: COMMONS NORMALS: normal inspection of the chest and normal palpation of entire chest wall Resp: COMMON NORMALS: normal respiratory effort, No retractions, No use of accessory muscles and clear to auscultation bilaterally AUSCULTATION: clear to auscultation bilaterally Cardio: COMMON NORMALS: regular rate, regular rhythm and No murmurs present (Cardio) RATE: regular rate RHYTHM: regular rhythm GI: COMMON NORMALS: Normal to inspection, nondistended, normoactive bowel sounds present, Soft to palpation, non-tender and no masses PALPATION: Yes Soft to palpation Extremity: COMMON NORMALS: normal to inspection and full ROM Neuro: COMMON NORMALS: patient oriented x3, moves all extremities and no focal motor deficits Psych: COMMON NORMALS: mental status grossly normal, Normal thought process present and cooperative THOUGHT PROCESS: Normal thought process present Skin: COMMON NORMALS: no rashes or lesions noted and no wounds GENERAL SKIN EXAM: no rashes or lesions noted Course Vital Signs: Vital signs: Vital Signs Temperature 97.5 F L 09/19/22 21:41 Pulse Rate 95 09/20/22 00:20 Respiratory Rate 18 09/20/22 00:20 Blood Pressure 143/105 09/20/22 00:20 Pulse Oximetry 94 09/20/22 00:20 Oxygen Delivery Me thod Room Air 09/19/22 21:41 MDM - Female Medical Decision Making Patient presents here with abdominal pain postop she is well-appearing here at this time CT scan shows no acute findings blood work urinalysis are normal she is stable for discharge she is to follow-up with her [employer] and return if worsening she understands agrees to plan. Differential Diagnosis Likely abdominal pain; Unlikely acute appendicitis, constipation, diverticulitis, pancreatitis or small bowel obstruction Lab Data 09/19/22 21:58 09/19/22 21:58 Radiology Impressions Abdomen/Pelvis CT 09/19/22 22:34 IMPRESSION: Expected postoperative changes of recent hysterectomy. No acute abnormality. Laboratory Results WBC 13.2 10^3/uL (4.0-10.0) H 09/19/22 21:58 RBC 4.57 10^6/uL (4.1-5.3) 09/19/22 21:58 Hgb 12.1 g/dL (11.5-15.3) 09/19/22 21:58 Hct 38.5 % (37.0-47.0) 09/19/22 21:58 MCV 84.2 fl (81-99) 09/19/22 21:58 MCH 26.5 pg (28.0-34.0) L 09/19/22 21:58 MCHC 31.4 g/dL (30.0-36.0) 09/19/22 21:58 RDW 13.9 % (12.1-15.1) 09/19/22 21:58 Plt Count 408 10^3/cmm (130-400) H 09/19/22 21:58 MPV 11.0 fL (7.4-10.4) H 09/19/22 21:58 Neut % (Auto) 70.3 % 09/19/22 21:58 Lymph % (Auto) 19.5 % 09/19/22 21:58 [place] % (Auto) 7.4 % 09/19/22 21:58 Eos % (Auto) 1.7 % 09/19/22 21:58 Baso % (Auto) 0.5 % 09/19/22 21:58 Neut # (Auto) 9.26 10^3/uL (1.8-7.7) H 09/19/22 21:58 Lymph # (Auto) 2.6 10^3/uL (0.8-4.8) 09/19/22 21:58 [place] # (Auto) 1.0 10^3/uL (0.2-0.9) H 09/19/22 21:58 Eos # (Auto) 0.2 10^3/uL (0.0-0.8) 09/19/22 21:58 Baso # (Auto) 0.1 10^3/uL (0.0-0.1) 09/19/22 21:58 Nucleated RBC % (auto) 0 % 09/19/22 21:58 Nucleated RBCs # 0.0 /100WBC 09/19/22 21:58 Sodium 140 mmol/L (136-145) 09/19/22 21:58 Potassium 3.7 mmol/L (3.5-5.1) 09/19/22 21:58 Chloride 101 mmol/L (98-107) 09/19/22 21:58 Carbon Dioxide 28 mmol/L (22-29) 09/19/22 21:58 Anion Gap 14.7 (5-19) 09/19/22 21:58 BUN 11 mg/dL (6-20) 09/19/22 21:58 Creatinine 0.4 mg/dL (0.5-0.9) L 09/19/22 21:58 GFR Calculation 166.3 mL/min (90-130) H 09/19/22 21:58 Glucose 98 mg/dL (65-115) 09/19/22 21:58 Calculated Osmolality 289 mOsm/kg (285-295) 09/19/22 21:58 Calcium 9.5 mg/dL (8.5-10.5) 09/19/22 21:58 Total Bilirubin 0.2 mg/dL (0.15-1.2) 09/19/22 21:58 AST 94 U/L (0-32) H 09/19/22 21:58 ALT 119 U/L (0-33) H 09/19/22 21:58 Alkaline Phosphatase 128 U/L (35-105) H 09/19/22 21:58 Total Protein 7.1 g/dL (6.6-8.7) 09/19/22 21:58 Albumin 4.5 g/dL (3.5-5.2) 09/19/22 21:58 Globulin 2.6 g/dL (1.3-4.6) 09/19/22 21:58 Lipase 16 U/L (13-60) 09/19/22 21:58 Urine Color Light yellow (Yellow) 09/19/22 22:55 Urine Appearance Clear (CLEAR) 09/19/22 22:55 Urine pH 7 (5-7) 09/19/22 22:55 Ur Specific [place] 1.010 (1.005-1.030) 09/19/22 22:55 Urine Protein Neg (Negative) 09/19/22 22:55 Urine Glucose (UA) Norm (Normal) 09/19/22 22:55 Urine Ketones Negative (Negative) 09/19/22 22:55 Urine Blood 2+ (Negative) H 09/19/22 22:55 Urine Nitrate Negative (Negative) 09/19/22 22:55 Urine Bilirubin Neg (Negative) 09/19/22 22:55 Urine Urobilinogen Norm mg/dL (Negative) 09/19/22 22:55 Ur Leukocyte Esterase Negative (Negative) 09/19/22 22:55 Urine RBC 0-4 /hpf (0-2) H 09/19/22 22:55 Urine WBC None /hpf (0-5) 09/19/22 22:55 Ur Squamous Epith Cells 0-4 /hpf (0-5) H 09/19/22 22:55 Amorphous Sediment Not Reportable 09/19/22 22:55 Urine Bacteria Trace /hpf (NONE) 09/19/22 22:55 Discharge Plan Discharge Patient Disposition: Home Clinical Impression: Abdominal pain Condition: Stable Prescriptions: New hydrocodone-acetaminophen 5-325 mg tablet 1 tab PO Q6H PRN (Reason: pain) Qty: 14 0RF ondansetron 4 mg tablet,disintegrating 4 mg PO Q6H PRN (Reason: nausea and vomiting) Qty: 14 0RF No Action esomeprazole magnesium [Nexium] 20 mg capsule,delayed release(DR/EC) 20 mg PO DAILY Claritin-D 12 Hour 5-120 mg tablet extended release 12 hr 1 tab PO DAILY ibuprofen 800 mg Tablet 800 mg PO Q8H Qty: 30 0RF hydrocodone-acetaminophen 5-325 mg Tablet 1 tab PO Q4H PRN (Reason: Moderate To Severe Pain) Qty: 30 0RF docusate sodium 100 mg Capsule 100 mg PO BID Qty: 60 0RF Discharge Orders: Discharge ED (Routine); Ordered 09/20/22 Ordered By: Theresa Adams Discharge Diet: Advance as tolerated Discharge Activity: Resume usual activity Patient Instructions: Abdominal Pain (ED), Opioid Safety Coding Level of Care Code ED 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
[2022-09-19 22:40] VITALS: BP 165/120; PULSE 101; RESP 18; O2SAT 99
[2022-09-19] MEDS: iohexol 350 mg/mL 500 mL Btl (per mL) IV ×2 (22:40→23:02)
[2022-09-19 22:45] VITALS: RESP 18
[2022-09-19] MEDS: ondansetron 2 mg/ML SDV 2 mL 4 MG IVP (22:45)
[2022-09-19] MEDS: morphine 4 mg/mL SDV 1 mL IVP (22:45)
[2022-09-19 23:17] LABS: Add Urine Microscopic? YES; Bilirubin Urine Neg (Negative); Blood Urine 2+ (Negative); Glucose Urine UA Norm (Normal); Ketones Urine Negative (Negative); Leukocyte Esterase Urine Negative (Negative); Nitrate Urine Negative (Negative); Protein Urine Neg (Negative); Urine Appearance Clear (CLEAR); Urine Color Light yellow (Yellow); Urobilinogen Urine Norm (Negative); pH Urine 7 (5-7)
[2022-09-19 23:18] LABS: Add Urine Culture? No; Bacteria Urine TRACE /hpf; RBC Urine 0-4 /hpf (0-2); Squamous Epithelial Cell Urine 0-4 /hpf (0-5)
[2022-09-20 00:01] VITALS: BP 169/107; RESP 18; O2SAT 96
[2022-09-20 00:20] VITALS: BP 143/105; PULSE 95; RESP 18; O2SAT 94
--- NOTE | 2022-09-28 13:33 | DCPLANNER ---
surgical services manager unable to speak with patient at this time about getting established with a primary care physician.
== END 2022-09-20 00:24 | disposition home or self-care (01) ==
PROVIDERS: Emergency Provider Emergency Medicine
DX: R10.30 Lower abdominal pain, unspecified (principal); I10 Essential (primary) hypertension
CPT/HCPCS: 74177; 80053; 81001; 83690; 85025; 96374; 96375; 99285; J2270; J2405; Q9967

== ENCOUNTER → 2022-09-28 16:20 | Outpatient (BNVA) | payer OTHER, SELFPAY | PROVIDERS: Visit Provider Obstetrics & Gynecology | DX: R30.0 Dysuria (principal); R82.90 Unspecified abnormal findings in urine | CPT/HCPCS: 84315; 87077; 87086; 87184 ==

== ENCOUNTER 2022-10-13 09:11 | Outpatient (CLI) | payer OTHER, SELFPAY ==
--- NOTE | 2022-10-13 09:23 | MM_ITS ---
WS: [id number] BILATERAL 3D TOMOSYNTHESIS DIGITAL SCREENING MAMMOGRAPHY WITH CAD CLINICAL INFORMATION: SCREENING HISTORY: Screening mammogram. No current complaints. COMPARISON: 2017 TECHNIQUE: Bilateral CC and MLO views. FINDINGS: The breasts are composed of heterogeneous fibroglandular density tissue, which can limit the detectio n of small underlying mass lesions. No suspicious mass, asymmetry, calcifications, or architectural d istortion. No evidence of malignancy. A few incidental punctate calcifications. MM/[place] [id number] IMPRESSION: BI-RADS: 2-Benign FOLLOW UP: 1 Year Follow-up Recommend return to annual screening mammography.
== END 2022-10-13 09:12 | disposition home or self-care (01) ==
LOC: RAD 09:14
PROVIDERS: PCP Obstetrics & Gynecology; Visit Provider Obstetrics & Gynecology
DX: Z12.31 Encounter for screening mammogram for malignant neoplasm of breast (principal)
CPT/HCPCS: 77063; 77067

== ENCOUNTER → 2023-02-09 11:22 | Outpatient (BNVA) | payer OTHER, SELFPAY | PROVIDERS: PCP Obstetrics & Gynecology; Visit Provider Emergency Medicine | DX: R68.89 Other general symptoms and signs (principal); J02.9 Acute pharyngitis, unspecified; R11.0 Nausea; J10.1 Influenza due to other identified influenza virus with other respiratory manifestations | CPT/HCPCS: 87400; 87426; 87880 ==

== ENCOUNTER → 2023-04-04 09:33 | Outpatient (BNVA) | payer OTHER, SELFPAY | PROVIDERS: PCP Obstetrics & Gynecology; Visit Provider Nurse Practitioner Family | DX: R68.89 Other general symptoms and signs (principal); J02.0 Streptococcal pharyngitis | CPT/HCPCS: 87400; 87426 ==